=== PATIENT | female | born 1950 | race Caucasian/White ===

== ENCOUNTER 2020-03-07 07:49 | Day surgery (SDC) | payer MEDICARE, BC ==
[2020-03-07] MEDS ORDERED: Iopamidol 612 MG/ML 150 ML Bottle IV ONE (08:00)
[2020-03-07] MEDS ORDERED: Propofol 200 MG/20 ML SDV ONE (09:13)
[2020-03-07] MEDS ORDERED: Midazolam 1 MG/ML 2 ML SDV ONE (09:13)
[2020-03-07] MEDS ORDERED: fentaNYL 100 MCG/2 ML SDV ONE (09:13)
--- NOTE | 2020-03-07 09:28 | CT ---
CT Abdomen Pelvis w Cont CLINICAL HISTORY: Diverticulitis COMPARISON: None. TECHNIQUE: Axial tomographic images are obtained from the dome of the diaphragm to the pubic symphysis with IV contrast enhancement. No oral contrast was used. Auto dosage reduction and iterative reconstruction techniques employed. FINDINGS: The lung bases are clear. The liver shows no mass. There is mild intrahepatic biliary prominence. The gallbladder has been removed. The spleen has a normal size and shape. Patient has had previous gastric surgery The pancreas shows some diffuse fatty infiltration. The adrenal glands appear normal bilaterally. The kidneys show no mass, stones or hydronephrosis. The aorta is mildly tortuous. Ureters have normal course and caliber. The bladder has a normal contour. There is no suspicious retroperitoneal adenopathy. There is some mild dilatation of the bowel loops. There is moderate to the retained stool throughout the colon. There is diffuse diverticulosis. There is some calcification near the tip of the cecum which may represent an enterolith. There is no evidence to suggest appendicitis. There is some thickening of the sigmoid colon which is likely muscularis hypertrophy. Pericolic fat planes are well preserved. IMPRESSION: Moderate diverticulosis without definite evidence of diverticulitis. Enterolith or appendicolith near the cecal tip. There is no evidence to suggest appendicitis Mild generalized small bowel distention in a nonspecific pattern Previous bariatric surgery Previous cholecystectomy
[2020-03-07] MEDS ORDERED: Glycopyrrolate 0.2 MG/ML 2 ML SDV IVPUSH ONE (10:00)
[2020-03-07] MEDS ORDERED: Dextrose 5%-Lactated Ringers 1,000 ML IV SCH (10:00)
--- NOTE | 2020-03-10 11:40 | OR ---
DATE OF PROCEDURE: 03/07/2020 SURGEON: Dillon Jalloh MD PREOPERATIVE DIAGNOSIS: Severe gastroesophageal reflux disease, status post previous sleeve gastrectomy. POSTOPERATIVE DIAGNOSIS: Status post sleeve gastrectomy with: 1. Recurrent hiatal hernia with wide-open esophagogastric junction related to gastroesophageal reflux disease. 2. A sense of retained gastric bile with diffuse bile gastritis including a focal gastric erosion. OPERATIVE PROCEDURE: Esophagogastroduodenoscopy with: 1. Biopsies of antrum for FAVIO test. 2. Biopsies of esophagogastric junction for histologic evaluation. INDICATIONS FOR PROCEDURE: This is a 69-year-old status post previous sleeve gastrectomy done in the [facility]. She presents now with worsening gastroesophageal reflux disease. She is also noted at this point to have had 5 episodes of sigmoid colon diverticulitis over the last year and a half or so. Plan is to proceed with upper GI endoscopy with biopsies as indicated. Potential risks including bleeding and perforation were discussed, and the patient wishes to proceed. DETAILS OF PROCEDURE: The patient was taken to the operating room and placed in a left lateral decubitus position. IV sedation was administered, after which the upper GI endoscope was passed orally through the length of the esophagus into the area of the remaining stomach and from there through the pyloric channel into the junction of 3rd and 4th portions of the duodenum. Findings included normal hypopharynx, larynx, upper esophageal sphincter, and esophageal body. At the EG junction, the patient was noted to have recurrence of hiatal hernia measuring around 3 to 4 cm and there was completely wide-open course of the esophagus passing into the stomach. Within the stomach and distal esophagus, there was a large amount of retained bile as well. This was then evacuated and the patient was noted to have more or less a diffuse bile gastritis within the stomach with a single focal erosion that had some blood on its surface. Pyloric channel and proximal duodenum were unremarkable. At this point, biopsies were obtained from the antrum and sent for CLOtest for H pylori. Multiple biopsies were then obtained from esophagogastric junction, sent for histologic evaluation. Minimal bleeding from the biopsy sites was seen and the procedure was then concluded. The patient was taken to the recovery room in satisfactory condition. with the patient postoperatively, she would probably be best treated by means of conversion to Laure-en-Y gastric bypass along with repair of the remaining hiatal hernia. We will see her back on 03/19 after she has completed a course of antibiotics for what appeared to be somewhat smoldering diverticular disease. A CT scan of the abdomen and pelvis today shows thickening of the sigmoid colon wall with extensive diverticulosis, but no abscesses or acute complications, so again we will have her finish off the treatment for the diverticulitis and see her back on 03/19 to discuss treatment options. Dillon Jalloh MD /[id number]
== END 2020-03-07 12:42 | disposition home or self-care (01) ==
LOC: JP.SDS 07:49
PROVIDERS: ATTEND Surgery
DX: K44.9 Diaphragmatic hernia without obstruction or gangrene (principal); K25.9 Gastric ulcer, unspecified as acute or chronic, without hemorrhage or perforation; K21.9 Gastro-esophageal reflux disease without esophagitis; K29.70 Gastritis, unspecified, without bleeding; G47.33 Obstructive sleep apnea (adult) (pediatric); J45.909 Unspecified asthma, uncomplicated; I10 Essential (primary) hypertension; E78.5 Hyperlipidemia, unspecified; E66.9 Obesity, unspecified; Z90.3 Acquired absence of stomach [part of]; Z01.812 Encounter for preprocedural laboratory examination; Z20.828 Contact with and (suspected) exposure to other viral communicable diseases; Z88.8 Allergy status to other drugs, medicaments and biological substances; Z68.29 Body mass index [BMI] 29.0-29.9, adult
CPT/HCPCS: 36415; 43239; 74177; 82565; 87081; J2250; J2704; J3010; J3490; J7050; J7121; Q9967; U0002

== ENCOUNTER 2020-04-01 07:42 | Inpatient (IN) | payer MEDICARE, BC ==
[~2020-04-01 07:42] MED LIST: Dexamethasone 4 MG/ML SDV ONE; Glycopyrrolate 0.2 MG/ML 5 ML MDV ONE; Lactated Ringers 1,000 ML ONE; Neostigmine Methylsulfate 1 MG/ML 5 ML Syringe ONE; Ondansetron 4 MG/2 ML SDV ONE; Propofol 200 MG/20 ML SDV ONE; Rocuronium 50 MG/5 ML Vial ONE; Succinylcholine 200 MG/10 ML MDV ONE; fentaNYL 250 MCG/5 ML SDV ONE
[2020-04-01] MEDS ORDERED: Scopolamine 1.5 MG Transdermal Patch TOP ONE (08:00)
[2020-04-01] MEDS ORDERED: Acetaminophen 500 MG Tab PO ONE (08:00)
[2020-04-01] MEDS ORDERED: Celecoxib 200 MG Cap PO ONE (08:00)
[2020-04-01] MEDS ORDERED: Dextrose 5%-Lactated Ringers 1,000 ML IV SCH (08:30)
[2020-04-01] MEDS: cefOXitin 2 GM in Sodium Chloride 0.9% 50 ML IV ONE ×2 (09:20→14:54)
[2020-04-01] MEDS ORDERED: fentaNYL 250 MCG/5 ML SDV ONE (10:15)
[2020-04-01] MEDS: cefOXitin 2 GM Vial ONE ×2 (10:35→11:19)
[2020-04-01] MEDS ORDERED: Labetalol 20 MG/4 ML Syringe ONE (10:57)
[2020-04-01] MEDS ORDERED: Ketamine 500 MG/5 ML MDV IV SCH (11:00)
[2020-04-01] MEDS ORDERED: Ketamine 50 MG in Sodium Chloride 0.9% 49.5 ML IV SCH (11:00)
[2020-04-01] MEDS ORDERED: Magnesium Sulfate 2.4 GM in Sodium Chloride 0.9% 100 ML IV SCH (11:00)
[2020-04-01] MEDS ORDERED: Sugammadex Sodium 200 MG/2 ML VIAL ONE (11:29)
[2020-04-01] MEDS ORDERED: hydrOXYzine HCL 100 MG/2 ML SDV IM ONE (11:44)
[2020-04-01] MEDS ORDERED: fentaNYL 100 MCG/2 ML SDV IVPUSH ONE ×2 (11:44→12:15)
[2020-04-01] MEDS ORDERED: fentaNYL 100 MCG/2 ML SDV ONE (12:33)
[2020-04-01] MEDS ORDERED: hydrOXYzine HCL 100 MG/2 ML SDV IM PRN ×3 (13:30→14:00)
[2020-04-01] MEDS ORDERED: HYDROmorphone 0.5 MG/0.5 ML Syringe IVPUSH PRN (13:39)
[2020-04-01] MEDS ORDERED: HYDROmorphone 1 MG/ML Syringe IV PRN (13:39)
[2020-04-01] MEDS ORDERED: Cyclobenzaprine 10 MG Tab PO PRN (13:43)
[2020-04-01] MEDS ORDERED: Metoclopramide 10 MG/2 ML SDV IVPUSH PRN (14:00)
[2020-04-01] MEDS ORDERED: Acetaminophen 500 MG Tab PO PRN (14:00)
[2020-04-01] MEDS ORDERED: Albuterol/Ipratropium 3.0-0.5 MG/3 ML Neb Soln INH PRN (14:00)
[2020-04-01] MEDS ORDERED: diphenhydrAMINE 50 MG/ML SDV IVPUSH PRN (14:00)
[2020-04-01] MEDS ORDERED: Calcium Gluconate 10% 1 GM/10 ML SDV IVPUSH PRN (14:00)
[2020-04-01] MEDS ORDERED: Ondansetron 4 MG/2 ML SDV IVPUSH PRN (14:00)
[2020-04-01] MEDS ORDERED: Labetalol 20 MG/4 ML Syringe IVPUSH PRN (14:00)
[2020-04-01] MEDS: Acetaminophen 500 MG Tab PO SCH ×3 (15:02→22:10)
[2020-04-01] MEDS: cefOXitin 2 GM in Sodium Chloride 0.9% 50 ML IV SCH ×2 (15:16→20:16)
[2020-04-01] MEDS ORDERED: MVI, Adult with Vitamin K 10 ML, Thiamine 200 MG, Chromium/Copper/Mang/Selen/Zn 1 ML in... IV SCH ×4 (16:00)
[2020-04-01] MEDS ORDERED: Pantoprazole 40 MG Vial IVPUSH SCH (16:00)
[2020-04-01] MEDS ORDERED: Trolamine Salicylate/Aloe Vera 10% Crm 85 GM Tube TOP PRN (17:01)
[2020-04-01] MEDS: Heparin Sodium 5,000 Units/ML Vial SUBCUT SCH (19:31)
[2020-04-01] MEDS: oxyCODONE 5 MG Tab PO PRN (20:26)
[2020-04-01] MEDS: Dextrose 5%-Lactated Ringers 1,000 ML IV SCH (23:13)
[2020-04-02] MEDS ORDERED: Benzocaine 20% Top Spray 56 GM Bottle TOP SCH (01:45)
[2020-04-02] MEDS ORDERED: Phenol/Sodium Phenolate Spray 180 ML Bottle MUCMEM PRN (02:00)
[2020-04-02] MEDS ORDERED: Phenol/Sodium Phenolate Spray 180 ML Bottle ONE (02:03)
[2020-04-02] MEDS: oxyCODONE 5 MG Tab PO PRN ×4 (02:09→20:15)
[2020-04-02] MEDS ORDERED: Iopamidol 612 MG/ML 50 ML SDV PO STA (02:14)
[2020-04-02] MEDS: Dextrose 5%-Lactated Ringers 1,000 ML IV SCH (04:13)
[2020-04-02] MEDS: cefOXitin 2 GM in Sodium Chloride 0.9% 50 ML IV SCH ×4 (04:13→20:15)
[2020-04-02] MEDS ORDERED: Ondansetron 4 MG Tab.DIS PO PRN (07:24)
[2020-04-02] MEDS ORDERED: hydrOXYzine HCl 25 MG Tab PO PRN (07:25)
[2020-04-02] MEDS ORDERED: Dextrose 5%-Lactated Ringers 1,000 ML IV SCH (07:30)
[2020-04-02] MEDS: Acetaminophen 500 MG Tab PO SCH (07:47)
[2020-04-02] MEDS: Acetaminophen Soln 650 MG/20.3 ML UD Cup PO SCH ×3 (07:53→23:14)
[2020-04-02] MEDS: Heparin Sodium 5,000 Units/ML Vial SUBCUT SCH ×2 (07:55→20:16)
[2020-04-02] MEDS: Lisinopril 20 MG Tab PO SCH (08:58)
[2020-04-02] MEDS: Celecoxib 200 MG Cap PO SCH ×2 (09:00→23:09)
[2020-04-02] MEDS ORDERED: Pantoprazole 40 MG Vial IVPUSH SCH (09:00)
[2020-04-02] MEDS: SCOPOLAMINE PATCH CHECK TOP SCH (09:01)
--- NOTE | 2020-04-02 09:25 | CR ---
[facility] [employer] HISTORY: Postbariatric surgery FINDINGS: Patient swallowed water-soluble contrast. Upright views of the abdomen show no evidence of extravasation or obstruction. There is a surgical drain in the left upper quadrant. IMPRESSION: Status post bariatric surgery No extravasation or obstruction seen
[2020-04-02] MEDS ORDERED: BIOFREEZE TOP PRN (11:22)
[2020-04-02] MEDS: [UNRECOGNIZED DRUG - REMARK] TOP SCH ×2 (11:55→20:28)
--- NOTE | 2020-04-02 12:16 | PN ---
DATE OF SERVICE: 04/02/2020 SUBJECTIVE: Varsha is postoperative day #1. Upper GI was normal this morning. Pain has been controlled. She has been up ambulating. Vital signs stable. She reports neck and shoulder pain and stiffness. Oral intake 626. Urine output 1625. EHSAN drain put out 70 mL of a light pink drainage. REVIEW OF SYSTEMS: Remainder of review of systems negative for any pertinent positives and negatives. OBJECTIVE: GENERAL: Varsha Jamil is a pleasant 69-year-old female. She is alert and orientated. VITAL SIGNS: TPR at 0300, 96.6; 76; 16; blood pressure is 128/78. HEENT: Negative. NECK: Supple. HEART: Regular rate and rhythm. LUNGS: Clear. ABDOMEN: Dressings dry and intact. EHSAN drain intact. Abdominal binder is on. EXTREMITIES: Without peripheral edema. ASSESSMENT: 1. Diagnostic laparoscopy with formation of laparoscopic Laure-en-Y gastric bypass surgery. 2. Liver biopsy. 3. Repair of paraesophageal diaphragmatic hernia. POSTOPERATIVE DIAGNOSES: 1. Morbid obesity, status post sleeve gastrectomy with large paraesophageal diaphragmatic hernia and severe gastroesophageal reflux disease, marked hepatomegaly. 2. Date of procedure: 04/01/2020. Surgeon: Dillon Jalloh MD. PLAN: 1. Decrease IV D5 LR to 100 mL per hour. 2. Dressing off, may shower. 3. Step 2 gastric bypass diet with no cereal. 4. Communication order to drink 3 med cups, 1 every 20 minutes or 3 per hour. 5. Zofran ODT 4 mg sublingual q.4 hours p.r.n. nausea, vomiting. 6. Atarax 25 mg p.o. q.4 hours p.r.n. pain. 7. Discontinue cardiac monitoring and continuous pulse ox. 8. We will evaluate p.r.n. or in a.m. Deanna Crews PA-C /[id number]
[2020-04-02] MEDS ORDERED: Pantoprazole 40 MG Delayed-Release Granules 1 Packet PO SCH (16:00)
[2020-04-02] MEDS ORDERED: MVI, Adult with Vitamin K 10 ML, Thiamine 200 MG, Chromium/Copper/Mang/Selen/Zn 1 ML in... IV SCH ×4 (16:00)
[2020-04-03] MEDS: cefOXitin 2 GM in Sodium Chloride 0.9% 50 ML IV SCH ×2 (02:16→08:39)
[2020-04-03] MEDS: [UNRECOGNIZED DRUG - REMARK] TOP SCH (03:32)
[2020-04-03] MEDS: Acetaminophen Soln 650 MG/20.3 ML UD Cup PO SCH (08:35)
[2020-04-03] MEDS: Lisinopril 20 MG Tab PO SCH (08:35)
[2020-04-03] MEDS: Heparin Sodium 5,000 Units/ML Vial SUBCUT SCH (08:36)
[2020-04-03] MEDS: SCOPOLAMINE PATCH CHECK TOP SCH (08:36)
[2020-04-03] MEDS: Celecoxib 200 MG Cap PO SCH (08:36)
[2020-04-03] MEDS ORDERED: Cyanocobalamin (Vitamin B12) 1,000 MCG/ML SDV IM ONE (09:00)
[2020-04-03] MEDS ORDERED: Magnesium Hydroxide 400 MG/5 ML Susp 30 ML Cup PO ONE (09:00)
--- NOTE | 2020-04-03 11:11 | DISCH ---
ADMISSION DIAGNOSES: 1. Diverticulitis. 2. Status post sleeve gastrectomy with gastroesophageal reflux disease. 3. Asthma. 4. Hypertension. DISCHARGE DIAGNOSES: 1. Diagnostic laparoscopy with formation of laparoscopic Laure-en-Y gastric bypass surgery. 2. Liver biopsy. 3. Repair of paraesophageal diaphragmatic hernia. POSTOPERATIVE DIAGNOSES: 1. Morbid obesity. 2. Status post sleeve gastrectomy with large paraesophageal diaphragmatic hernia. 3. Severe gastroesophageal reflux disease. 4. Marked hepatomegaly. 5. Date of procedure: 04/01/2020. Surgeon: Dillon Jalloh MD. HISTORY: Varsha Jamil is a 69-year-old female who had a sleeve gastrectomy several years ago. She developed symptoms of severe gastroesophageal reflux disease. After preoperative evaluation and discussion of possible risks and possible complications, she wished to proceed with surgical procedure. HOSPITAL COURSE: Varsha had her surgery on 04/01/2020. She had no operative complications. On postoperative day #1, her upper GI was normal and she was started on step 2 gastric bypass with no cereal. On postoperative day #2, vital signs were stable. Pain was controlled. Activity was good. She was able to be discharged to home. PHYSICAL EXAMINATION: GENERAL: Varsha Jamil is a pleasant 69-year-old female. VITAL SIGNS: Height is 5 feet 6.5 inches, weight is 186 pounds and 4.8 ounces. TPR 97, 73, 16, blood pressure 151/71. HEENT: Negative. NECK: Supple. HEART: Regular rate and rhythm. LUNGS: Clear. ABDOMEN: Dressings dry and intact. 4x4s will be placed over EHSAN drain site. Incisions look good. Abdominal binder is on. EXTREMITIES: Without peripheral edema. DISPOSITION: Discharged to home. CONDITION: Stable and improving. FOLLOWUP APPOINTMENT: Deanna Crews PA-C, on 04/14/2020 at 9:15 a.m. HOME MEDICATIONS: 1. Celebrex 200 mg oral b.i.d., #28. 2. Milk of magnesia, 30 mL, 2 were sent home with the patient to take 1 daily p.r.n. constipation. 3. Tylenol 1000 mg oral q.8 hours p.r.n. pain. 4. Zofran ODT 4 mg oral q.4 hours p.r.n. nausea, #30. 5. To resume home medications: a. Lisinopril 40 mg oral daily and to discontinue taking vitamins and supplements until after 1st postop appointment. DIET: Step 2 gastric bypass diet for 2 weeks until 04/16/2020. ACTIVITY: No lifting greater than 10 pounds for 2 weeks. OTHER ACTIVITY: Walk 6 times daily inside your home. Driving: Do not drive for 1 week and while on pain medication. Shower/bathing: May shower. DISCHARGE INSTRUCTIONS: Notify provider if any fever, increased pain, nausea, or vomiting. Keep site clean and dry. Wear abdominal binder for 2 weeks and then as tolerated. Use incentive spirometer 10 times every hour while awake for 1 week.
--- NOTE | 2020-04-08 10:31 | OR ---
DATE OF PROCEDURE: 04/01/2020 SURGEON: Dillon Jalloh MD PREOPERATIVE DIAGNOSES: Severe gastroesophageal reflux disease and large paraesophageal hernia, status post previous sleeve gastrectomy. POSTOPERATIVE DIAGNOSES: 1. Severe gastroesophageal reflux disease and large paraesophageal hernia, status post previous sleeve gastrectomy. 2. Marked hepatomegaly. OPERATIVE PROCEDURES: Diagnostic laparoscopy with: 1. Formation of laparoscopic Laure-en-Y gastric bypass with long limb gastroenterostomy (35958). 2. Thomas-Cut needle liver biopsy (58981). 3. Repair of paraesophageal diaphragmatic hernia (79164). ANESTHESIA: General. CHUTE OPERATOR: Deanna Crews PA-C INDICATIONS FOR PROCEDURE: This is a 69-year-old status post previous sleeve gastrectomy done in the [facility]. She is now presenting with severe reflux disease. Upper endoscopy confirmed a large hiatal hernia present as well, and plan is to proceed with conversion from a sleeve gastrectomy status to Laure-en-Y gastric bypass status along with repair of the diaphragmatic hernia. Potential risks including bleeding, infection, leaks from various GI tract closures, problems with bowel obstruction over time, as well as possibility of cardiopulmonary, septic, or hemorrhagic complications leading to were all discussed, and the patient wishes to proceed. DETAILS OF PROCEDURE: The patient was taken to the operating room, placed in a supine position. After general endotracheal anesthesia was induced, she was converted to a lithotomy position, and the abdomen prepped and draped. 15 cm inferior and 5 cm left of the xiphoid process, transverse incision was made, and peritoneal cavity entered under direct vision with an Optiview trocar, inflated to 15 mmHg pressure of CO2. Laparoscope was then reinserted. No underlying trocar insertion site injuries were seen. Following this, 5 additional trocars were placed across the upper and mid abdomen, and bilateral transversus abdominis plane blocks were placed. The patient was initially noted to have a quite marked hepatomegaly with the liver volume being roughly 2 to 3 times normal and grossly fatty infiltrated. Thomas-Cut needle biopsies were obtained from left lobe of liver. Minimal bleeding from the biopsy sites was controlled with electrocautery. The omentum was then divided in the midline up to the level of the transverse colon. This allowed identification of the small bowel and ligament of Treitz. Small bowel was then traced out 125 cm distal to that point where it was divided transversely with LEILA stapler. Small bowel was then traced out an additional 175 cm where the ibas-gb-lyha enteroenterostomy was accomplished with internal firing of the Endo-LEILA 60 mm stapler. Common opening was then closed transversely with the same stapler, and the angles anastomosed and mesenteric defect approximated with some 0 Ethibond stitch along with 4 mL of fibrin sealant. Divided end of Laure limb was then from the mesentery for a few centimeters, which allowed antecolic positioning of the Laure limb up to the level of the gastroesophageal junction without tension. Attention was then taken to the area of the proximal stomach. Upon elevation of the liver, the patient was noted to have a quite large paraesophageal hernia. This was felt best treated by means of a formal posterior repair. The distal esophagus was dissected free from the crura on each side and retrocrural window established. Once this was well dissected free and roughly 5 cm length of intraabdominal esophagus was established, a posterior crural repair was accomplished with 0 Ethibond sutures reinforced with PTFE pledgets. The gastrointestinal balloon catheter was then inflated 15 mL and pulled up snugly against the EG junction. Gastric wall over the apex of the balloon was then marked with electrocautery and balloon catheter deflated and pulled up in the esophagus. The lesser omental tissue adjacent to the gastric cardia was then dissected free involving dissection behind the stomach level to the cauterized sixto the gastric cardia. The pouch formation was then initiated with transverse firing of the LEILA black load with additional firings of LEILA black load was then accomplished completing the formation of the proximal gastric pouch. The anvil of a 25 mm EEA stapler was then attached to [place]ham sump type tube. The latter was brought down through the mouth, taken out through a small opening in the gastric pouch, allowing the anvil likewise to be pulled down to within the gastric pouch. The divided end of Laure limb was then opened, and main body of the EEA stapler passed several centimeters in the lumen of small bowel, brought up the anvil and united with it, thus creating the gastrojejunostomy. Upon removal of the stapler, double donuts of mucosa were noted within it and the small bowel was closed off with a vascular staple line. The gastrojejunostomy was reinforced with some 3-0 Vicryl seromuscular stitch along with fibrin sealant. A leak test was accomplished with injection of 120 mL of air in the gastric pouch while it was submerged with cefoxitin-containing saline solution. No leaks were identified. A single Juan-Nascimento drain was taken out through the left lateral trocar site and positioned adjacent to gastric cardia, and from there up into the splenic fossa. Trocars were then sequentially removed and peritoneal cavity deflated. Incisions were closed with 4-0 Vicryl skin stitch, and drain was fixed with 4-0 Vicryl stitch as well. The patient was taken to the recovery room in satisfactory condition. There were no evident complications. Physician assistant operations manager, Deanna Crews, played an essential role in assisting in this case, helping to position the patient, retract structures as needed, as well as suturing and cutting sutures when indicated. Her presence improved the patient's safety and decreased operative time. Dillon Jalloh MD /[id number]
== END 2020-04-03 11:00 | disposition home or self-care (01) | DRG 621 ==
LOC: JP.SDS 07:42 → JP.MS 07:42 → EDSTATUS 11:15
PROVIDERS: ADMIT Surgery; ATTEND Surgery
PROC: 0D164ZA Bypass Stomach to Jejunum, Percutaneous Endoscopic Approach (ICD-10-PCS; principal; 2020-04-01)
PROC: 0FB24ZX Excision of Left Lobe Liver, Percutaneous Endoscopic Approach, Diagnostic (ICD-10-PCS; 2020-04-01)
PROC: 0BQT4ZZ Repair Diaphragm, Percutaneous Endoscopic Approach (ICD-10-PCS; 2020-04-01)
DX: E66.01 Morbid (severe) obesity due to excess calories (principal); R16.0 Hepatomegaly, not elsewhere classified; K44.9 Diaphragmatic hernia without obstruction or gangrene; K21.9 Gastro-esophageal reflux disease without esophagitis; J45.909 Unspecified asthma, uncomplicated; I10 Essential (primary) hypertension; Z88.8 Allergy status to other drugs, medicaments and biological substances; Z90.3 Acquired absence of stomach [part of]
CPT/HCPCS: 36415; 74240; 74240-26; 86850; 86900; 86901; 88307; 88313; A9270-GY; C9113; J0171; J0330; J0694; J1100; J1170; J1644; J2405; J2704; J2710; J2795; J3010; J3410; J3411; J3420; J3475; J3490; J7030; J7050; J7120; J7121; Q9967

== ENCOUNTER 2021-09-21 02:37 | Inpatient (IN) | payer MEDICARE ==
[2021-09-21] MEDS ORDERED: HYDROmorphone 1 MG/ML Syringe IVPUSH ONE (02:52)
[2021-09-21] MEDS: Lactated Ringers 1,000 ML IV SCH ×2 (03:12→07:54)
[2021-09-21] MEDS ORDERED: Iopamidol 612 MG/ML 100 ML Bottle IV STA (03:21)
[2021-09-21] MEDS ORDERED: Sodium Chloride 0.9% 50 ML IV STA (03:21)
[2021-09-21] MEDS: Ondansetron 4 MG/2 ML SDV IVPUSH ONE ×2 (03:40→03:51)
[2021-09-21] MEDS ORDERED: Ketamine 500 MG/5 ML MDV IV ONE (04:16)
[2021-09-21] MEDS ORDERED: HYDROmorphone 0.5 MG/0.5 ML Syringe IVPUSH ONE (04:16)
[2021-09-21 05:44] LABS: CORONAVIRUS COVID-19 NAA NEGATIVE (NEGATIVE)
[2021-09-21] MEDS ORDERED: Bupivacaine 0.5% 50 ML MDV ONE (07:43)
[2021-09-21] MEDS ORDERED: Neostigmine Methylsulfate 1 MG/ML 5 ML Syringe ONE (07:43)
[2021-09-21] MEDS ORDERED: Succinylcholine 200 MG/10 ML MDV ONE (07:43)
[2021-09-21] MEDS ORDERED: Glycopyrrolate 0.2 MG/ML 5 ML MDV ONE (07:43)
[2021-09-21] MEDS ORDERED: Meropenem 500 MG SDV ONE (07:43)
[2021-09-21] MEDS ORDERED: Propofol 200 MG/20 ML SDV ONE (07:43)
[2021-09-21] MEDS ORDERED: Lidocaine 1% with EPINEPHrine 1:100,000 50 ML MDV ONE (07:43)
[2021-09-21] MEDS ORDERED: Ondansetron 4 MG/2 ML SDV ONE (07:43)
[2021-09-21] MEDS ORDERED: Dexamethasone 4 MG/ML SDV ONE (07:43)
[2021-09-21] MEDS ORDERED: Rocuronium 50 MG/5 ML Vial ONE (07:43)
[2021-09-21] MEDS ORDERED: fentaNYL 250 MCG/5 ML SDV ONE ×2 (07:44→08:34)
[2021-09-21] MEDS ORDERED: Ropivacaine 38 ML, dexAMETHasone 8 MG, EPINEPHrine 0.4 MG, Sodium Chloride 0.9% 39.6 ML NERVRT SCH ×4 (08:00)
[2021-09-21] MEDS ORDERED: cefOXitin 2 GM Vial ONE (08:39)
[2021-09-21] MEDS ORDERED: Scopolamine 1.5 MG Transdermal Patch ONE (08:49)
[2021-09-21] MEDS ORDERED: Ketamine 500 MG/5 ML MDV IV SCH (09:00)
[2021-09-21] MEDS ORDERED: Ketamine 18 MG in Sodium Chloride 0.9% 19.82 ML IV SCH (09:00)
[2021-09-21] MEDS ORDERED: Lactated Ringers 1,000 ML ONE (09:19)
[2021-09-21] MEDS ORDERED: Naloxone 0.4 MG/ML SDV IVPUSH PRN (10:24)
[2021-09-21] MEDS ORDERED: Ondansetron 4 MG/2 ML SDV IVPUSH PRN ×2 (10:24→13:00)
[2021-09-21] MEDS ORDERED: diphenhydrAMINE 50 MG/ML SDV IVPUSH PRN ×2 (10:24→13:00)
[2021-09-21] MEDS ORDERED: diphenhydrAMINE 25 MG Cap PO PRN (10:24)
[2021-09-21] MEDS: HYDROmorphone/Normal Saline 6 MG/30 ML PCA Vial IV PRN ×2 (10:36→20:27)
[2021-09-21] MEDS: Dextrose 5%-Lactated Ringers 1,000 ML IV SCH ×2 (11:00→22:28)
[2021-09-21] MEDS ORDERED: Cyclobenzaprine 10 MG Tab PO PRN (12:15)
[2021-09-21] MEDS ORDERED: Pantoprazole 40 MG Vial IVPUSH SCH (13:00)
[2021-09-21] MEDS ORDERED: hydrOXYzine HCL 100 MG/2 ML SDV IM PRN (13:00)
[2021-09-21] MEDS ORDERED: Acetaminophen 500 MG Tab PO PRN (13:00)
[2021-09-21] MEDS ORDERED: Metoclopramide 10 MG/2 ML SDV IVPUSH PRN (13:00)
[2021-09-21] MEDS ORDERED: Labetalol 20 MG/4 ML Syringe IVPUSH PRN (13:00)
[2021-09-21] MEDS: SCOPOLAMINE PATCH CHECK TOP SCH (13:24)
[2021-09-21] MEDS: Lisinopril 20 MG Tab PO SCH (13:28)
[2021-09-21] MEDS: Acetaminophen 500 MG Tab PO SCH ×2 (13:29→22:59)
[2021-09-21] MEDS: cefOXitin 2 GM in Sodium Chloride 0.9% 50 ML IV SCH ×2 (14:31→20:15)
[2021-09-21] MEDS: MVI, Adult with Vitamin K 10 ML, Thiamine 200 MG, Zinc/Copper/Manganese/Selenium 1 ML i... IV SCH ×4 (15:53)
[2021-09-21] MEDS: Heparin Sodium 5,000 Units/ML Vial SUBCUT SCH (17:54)
[2021-09-22] MEDS: cefOXitin 2 GM in Sodium Chloride 0.9% 50 ML IV SCH ×4 (01:32→20:21)
[2021-09-22] MEDS ORDERED: Iopamidol 612 MG/ML 50 ML SDV PO ONE (03:53)
[2021-09-22] MEDS: Dextrose 5%-Lactated Ringers 1,000 ML IV SCH ×2 (04:54→13:29)
[2021-09-22] MEDS: Heparin Sodium 5,000 Units/ML Vial SUBCUT SCH ×2 (06:27→17:17)
[2021-09-22] MEDS: Acetaminophen 500 MG Tab PO SCH ×3 (06:27→22:19)
[2021-09-22] MEDS: Celecoxib 200 MG Cap PO SCH ×2 (08:38→20:21)
[2021-09-22] MEDS: Lisinopril 20 MG Tab PO SCH (08:38)
[2021-09-22] MEDS: SCOPOLAMINE PATCH CHECK TOP SCH (10:31)
[2021-09-22] MEDS: Magnesium Sulfate/Water 2 GM in Premix Bag 1 BAG IV SCH ×3 (10:31→22:20)
[2021-09-22] MEDS: Pantoprazole 40 MG Tab.CR PO SCH (12:49)
[2021-09-22] MEDS: MVI, Adult with Vitamin K 10 ML, Thiamine 200 MG, Zinc/Copper/Manganese/Selenium 1 ML i... IV SCH ×4 (15:15)
[2021-09-23] MEDS: Dextrose 5%-Lactated Ringers 1,000 ML IV SCH ×3 (02:05→23:27)
[2021-09-23] MEDS: HYDROmorphone/Normal Saline 6 MG/30 ML PCA Vial IV PRN (02:06)
[2021-09-23] MEDS: Magnesium Sulfate/Water 2 GM in Premix Bag 1 BAG IV SCH ×4 (03:16→22:00)
[2021-09-23] MEDS: Acetaminophen 500 MG Tab PO SCH ×3 (05:32→22:01)
[2021-09-23] MEDS: Heparin Sodium 5,000 Units/ML Vial SUBCUT SCH (05:33)
[2021-09-23] MEDS: Pantoprazole 40 MG Tab.CR PO SCH (07:26)
[2021-09-23] MEDS ORDERED: Cyanocobalamin (Vitamin B12) 1,000 MCG/ML SDV IM ONE (09:00)
[2021-09-23] MEDS: Lisinopril 20 MG Tab PO SCH (09:28)
[2021-09-23] MEDS: Celecoxib 200 MG Cap PO SCH ×2 (09:28→22:00)
[2021-09-23] MEDS: Docusate Sodium 100 MG Cap PO SCH ×2 (09:28→22:01)
[2021-09-23] MEDS: Bisacodyl 5 MG Tab PO SCH ×2 (09:28→22:01)
[2021-09-23] MEDS: SCOPOLAMINE PATCH CHECK TOP SCH (09:28)
[2021-09-24] MEDS: Magnesium Sulfate/Water 2 GM in Premix Bag 1 BAG IV SCH (04:59)
[2021-09-24] MEDS: Acetaminophen 500 MG Tab PO SCH ×3 (05:00→21:14)
[2021-09-24] MEDS ORDERED: HYDROmorphone 2 MG Tab PO PRN (07:08)
[2021-09-24] MEDS: Pantoprazole 40 MG Tab.CR PO SCH (08:05)
[2021-09-24] MEDS: Dextrose 5%-Lactated Ringers 1,000 ML IV SCH (09:22)
[2021-09-24] MEDS: Docusate Sodium 100 MG Cap PO SCH ×2 (09:26→21:14)
[2021-09-24] MEDS: Celecoxib 200 MG Cap PO SCH ×2 (09:26→21:14)
[2021-09-24] MEDS: Bisacodyl 5 MG Tab PO SCH ×2 (09:26→21:14)
[2021-09-24] MEDS: Lisinopril 20 MG Tab PO SCH (09:27)
[2021-09-25] MEDS: Acetaminophen 500 MG Tab PO SCH (06:11)
[2021-09-25] MEDS: Bisacodyl 5 MG Tab PO SCH (08:43)
[2021-09-25] MEDS: Docusate Sodium 100 MG Cap PO SCH (08:43)
[2021-09-25] MEDS: Pantoprazole 40 MG Tab.CR PO SCH (08:46)
[2021-09-25] MEDS: Lisinopril 20 MG Tab PO SCH (08:46)
[2021-09-25] MEDS: Celecoxib 200 MG Cap PO SCH (08:46)
== END 2021-09-25 10:00 | disposition home or self-care (01) | DRG 329 ==
LOC: JP.ED 02:37 → JP.MS 06:57
PROVIDERS: ADMIT Surgery; ATTEND Surgery
PROC: 0DB80ZZ Excision of Small Intestine, Open Approach (ICD-10-PCS; principal; 2021-09-21)
PROC: 0WUF0JZ Supplement Abdominal Wall with Synthetic Substitute, Open Approach (ICD-10-PCS; 2021-09-21)
PROC: 0DU Gastrointestinal System, Supplement (ICD-10-PCS; 2021-09-21)
PROC: 30233N1 Transfusion of Nonautologous Red Blood Cells into Peripheral Vein, Percutaneous Approach (ICD-10-PCS; 2021-09-23)
DX: K43.0 Incisional hernia with obstruction, without gangrene (principal); K55.029 Acute infarction of small intestine, extent unspecified; K56.609 Unspecified intestinal obstruction, unspecified as to partial versus complete obstruction; H54.7 Unspecified visual loss; K56.2 Volvulus; I10 Essential (primary) hypertension; Z96.653 Presence of artificial knee joint, bilateral; Z96.642 Presence of left artificial hip joint; J45.909 Unspecified asthma, uncomplicated; Z20.822 Contact with and (suspected) exposure to COVID-19; K21.9 Gastro-esophageal reflux disease without esophagitis; Z98.42 Cataract extraction status, left eye; Z98.41 Cataract extraction status, right eye; Z87.01 Personal history of pneumonia (recurrent); Z90.89 Acquired absence of other organs; Z98.890 Other specified postprocedural states; K57.90 Diverticulosis of intestine, part unspecified, without perforation or abscess without bleeding; M19.90 Unspecified osteoarthritis, unspecified site; Z90.49 Acquired absence of other specified parts of digestive tract; Z88.0 Allergy status to penicillin; Z88.8 Allergy status to other drugs, medicaments and biological substances; Z79.899 Other long term (current) drug therapy; Z90.710 Acquired absence of both cervix and uterus; Z98.84 Bariatric surgery status
CPT/HCPCS: 0241U; 36415; 36430; 74177; 74240; 74240-26; 80053; 81001; 82728; 83605; 83690; 83735; 83880; 84100; 84145; 84484; 85025; 85027; 86850; 86900; 86901; 86920; 86922; 88302; 88307; 96374; 96375; 96376; 99283; 99285-25; A9270-GY; C9113; J0171; J0330; J0694; J1100; J1170; J1200; J1644; J2020; J2185; J2405; J2704; J2710; J2795; J3010; J3410; J3411; J3420; J3475; J3490; J7120; J7121; P9016; Q9967